=== PATIENT | female | born 1985 | race Caucasian/White ===

== ENCOUNTER 2023-05-15 07:14 | Day surgery (SDC) | payer BC ==
[2023-05-13 08:43] VITALS: BMI 35.4
[2023-05-15] MEDS ORDERED: LIDOCAINE HCL/PF 2% SDV 5ML VIAL ONE (08:27)
[2023-05-15] MEDS ORDERED: MIDAZOLAM HCL 2 MG/2 ML SINGLE DOSE VIAL ONE (08:28)
[2023-05-15] MEDS ORDERED: PROPOFOL 20 ML ONE (08:28)
[2023-05-15] MEDS ORDERED: KETOROLAC TROMETHAMINE 30 MG/1 ML VIAL ONE (08:53)
[2023-05-15] MEDS ORDERED: DEXAMETHASONE SOD PHOSPHATE 4 MG/1 ML VIAL ONE (08:53)
[2023-05-15] MEDS ORDERED: ONDANSETRON 4 MG/2 ML VIAL ONE (08:53)
[2023-05-15] MEDS ORDERED: ceFAZolin SODIUM 1 GM VIAL ONE (08:53)
[2023-05-15] MEDS ORDERED: oxyCODONE HCL 5 MG TABLET PO PRN ×2 (09:27)
[2023-05-15] MEDS ORDERED: ACETAMINOPHEN 1000 MG/100 ML BAG IVPB ONE (09:27)
[2023-05-15] MEDS ORDERED: PROMETHAZINE HCL 25 MG/1 ML VIAL IVPB PRN (09:27)
[2023-05-15] MEDS ORDERED: ONDANSETRON 4 MG/2 ML VIAL IVPUSH PRN (09:27)
[2023-05-15] MEDS ORDERED: LACTATED RINGERS SOLUTION 1,000 ML IV SCH (09:30)
[2023-05-15 10:37] VITALS: PULSE 66; RESP 14; TEMP 97.5
[2023-05-15 10:57] VITALS: BP 114/73
== END 2023-05-15 10:55 | disposition home or self-care (01) ==
LOC: FASU 07:14
PROVIDERS: ATTEND Orthopaedic Surgery
PROC: 01N50ZZ Release Median Nerve, Open Approach (ICD-10-PCS; principal; 2023-05-15 09:10)
DX: G56.02 Carpal tunnel syndrome, left upper limb (principal)
CPT/HCPCS: 81025; 94760